=== PATIENT | female | born 1940 | race Caucasian/White ===

== ENCOUNTER → 2016-08-27 | Outpatient (CLI) | payer MEDICARE, OTHER ==
[~2016-08-27] MED LIST: ALDACTONE25 MG PO; ASPIRIN LO-DOSE81 MG PO; BYSTOLIC10 MG PO; CALCIUM CARBON600 MG PO; CPAP; CULTURELLE1 CAP PO; CYMBALTA60 MG PO; FEMARA 2.5 MG2.5 MG PO; GLUCOPHAGE500 MG PO; IRON325 M1 PO; JANUVIA 100 MG100 MG PO; K-TAB 10MEQ10 MEQ PO; LASIX20 MG PO; LEVEMIR FL100 UNIT/1 SUB-Q; LIPITOR40 MG PO; LUNESTA3 MG PO; MICARDIS80 MG PO; MIRALAX17 GM PO; MULTI VITAMIN1 EACH PO; NEURONTIN300 MG PO; NOVOLOG100 UNIT/M; OXYGEN INH; OXYGEN M-15 INH; PRESERVISION A1 EAC1 PO; SYSTANE LIQUID15 ML OPHTH; TYLENOL EXTRA500 MG PO; VITAMIN D1000 UNI1 PO
== END | disposition disaster alternative care site (69) ==
LOC: GBCOE 12:55
DX: C50.912 Malignant neoplasm of unspecified site of left female breast (principal); M85.852 Other specified disorders of bone density and structure, left thigh; M70.61 Trochanteric bursitis, right hip; Z79.899 Other long term (current) drug therapy

== ENCOUNTER → 2017-02-10 | Outpatient (CLI) | payer MEDICARE, OTHER | END | disposition disaster alternative care site (69) | LOC: GRAD 10:46 | DX: R07.81 Pleurodynia (principal); M89.9 Disorder of bone, unspecified; K83.8 Other specified diseases of biliary tract; J98.4 Other disorders of lung; I70.90 Unspecified atherosclerosis; Z90.11 Acquired absence of right breast and nipple ==

== ENCOUNTER → 2017-03-08 | Outpatient (CLI) | payer MEDICARE, OTHER | LOC: GKIC 11:28 | DX: M89.9 Disorder of bone, unspecified (principal) | CPT/HCPCS: A9552 ==